=== PATIENT | female | born 1995 | race Caucasian/White ===

== ENCOUNTER 2019-10-18 12:09 | Emergency (ER) | payer OTHER ==
[~2019-10-18] VITALS: Ht 157.5 cm; Wt 78.5 kg
[2019-10-18 12:31] VITALS: Ht 157.5 cm; Wt 78.5 kg
[2019-10-18 14:14] VITALS: BP 130/80
== END 2019-10-18 14:14 | disposition home or self-care (01) ==
LOC: ED 12:09
DX: O26.891 Other specified pregnancy related conditions, first trimester (principal); T47.1X5A Adverse effect of other antacids and anti-gastric-secretion drugs, initial encounter; R10.9 Unspecified abdominal pain; Z3A.01 Less than 8 weeks gestation of pregnancy; Y92.89 Other specified places as the place of occurrence of the external cause
CPT/HCPCS: J2270; Q0162